=== PATIENT | male | born 1930 | race Caucasian/White ===

== ENCOUNTER 2016-08-10 07:07 | Observation (INO) | payer OTHER ==
--- NOTE | 2016-08-10 07:28 | EDPHY ---
H & P Time Seen by Provider: 08/10/16 07:24 HPI/ROS: CHIEF COMPLAINT: Vomiting HISTORY OF PRESENT ILLNESS: Patient is an 86-year-old male with a history of GERD who presents to the emergency department after having an episode of emesis. Patient was well last evening. He ate normal dinner. At 5:30 a.m. he called to his . He told her he felt nauseated. The and had numerous episodes of emesis. His symptoms subsided and he was able to sit on a stool for little while. When he attempted to lay back down he again had an episode of emesis. He had a total of 4 episodes of nonbloody emesis. He also had a bowel movement that was regular with no diarrhea. Patient denies any abdominal pain currently or during his symptoms. No back pain. No fevers or chills. No chest pain or shortness of breath. No recent trauma. REVIEW OF SYSTEMS: My complete review of systems is negative except as mentioned in the HPI. Additionally the patient has decreased hearing. Past Medical/Surgical History: Includes GERD, BPH, neuropathy, degenerative disc disease, osteoarthritis, cirrhotic arthritis, migraines, basal cell carcinoma, dyslipidemia, migraines Past surgical history: Bilateral cataract removal, spinal fusion, vasectomy, wrist surgery Smoking Status: Former smoker Physical Exam: 36.4, 153/103, 83, 18, 95% on room air GENERAL: Well-appearing, in no acute distress, alert. HEENT: Eyes normal to inspection, normal pharynx, no signs of dehydration. NECK: No thyromegaly, no lymphadenopathy, supple. RESPIRATORY: Clear to auscultation bilaterally, no rales, rhonchi or wheezing. CVS: Regular rate and rhythm, no rubs, murmurs, or gallops. ABDOMEN: Soft, nontender, nondistended, no organomegaly. Benign BACK: Normal to inspection, no CVA tenderness. SKIN: Normal color, no rash, warm, dry. No pallor. EXTREMITIES: No pedal edema, no calf tenderness, no Homans sign or cords, no joint swelling. NEURO/PSYCH: Alert and oriented x3, normal mood and affect, normal motor sensory exam. No obvious cranial nerve deficit. Constitutional: Initial Vital Signs Temperature (C) 36.4 C 08/10/16 07:15 Heart Rate 83 08/10/16 07:15 Respiratory Rate 18 08/10/16 07:15 Blood Pressure 153/103 H 08/10/16 07:15 O2 Sat (%) 95 08/10/16 07:15 O2 Delivery Mode Nasal Cannula O2 (L/minute) 4 Allergies/Adverse Reactions: amoxicillin [Amoxicillin] Allergy (Verified 02/15/15 08:12) clopidogrel bisulfate [From Plavix] Allergy (Verified 02/15/15 08:12) meclofenamate sodium [From Meclomen] Allergy (Verified 02/15/15 08:12) Hives mirabegron [From Myrbetriq] Allergy (Verified 04/08/15 14:46) Quinolones Allergy (Verified 02/15/15 08:12) Home Medications: Medication Instructions Recorded Aspirin [Aspirin 81mg (*)] 81 mg PO DAILY 09/13/13 Finasteride [Proscar 5 MG (*)] 5 mg PO DAILY@18 09/13/13 Multivitamins [Multivitamin (*)] 1 each PO Q2D@1800 09/13/13 Naproxen [Naprosyn] 500 mg PO BIDMEAL 09/13/13 Omeprazole [Prilosec 20 mg] 20 mg PO BIDAC 09/13/13 DORZOLAMIDE HCL [DORZOLAMIDE HCL] 1 drop EACHEYE TID 08/10/16 DULoxetine [Cymbalta] 20 mg PO DAILY 08/10/16 Tafluprost/Pf [Zioptan 0.0015% Eye 1 drop EACHEYE HS 08/10/16 Drops] Tolterodine Tartrate [Tolterodine 4 mg PO DAILY 08/10/16 Tartrate ER] Vit A,C & E/Lutein/Minerals 1 each PO Q2D@1800 08/10/16 [Ocuvite Tablet] Medical Decision Making - Diagnostics EKG Interpretation: EKG at 9:13 a.m. Sinus rhythm at 80. Ventricular bigeminy. Left anterior fascicular block. ED Course/Re-evaluation: In the emergency department I discussed possible etiologies with the patient and his . I answered all their questions. I reviewed the patient's previous H and P from 09/13/2013. Patient states he is feeling better at this time. Patient was given normal saline 500 mL IV. He was given Zofran 4 mg IV. Laboratory studies were ordered. 910: The nurse asked that I evaluate the patient. His pressure has been tracking down. He has received 1 L of normal saline. It is noted that he received Phenergan from EMS. Rechecked the patient. He denies lightheadedness or dizziness. No chest pain or palpitations. An EKG was ordered. 915: The patient has no complaints. He states " I feel fine." no chest pain or shortness of breath. No nausea. No abdominal pain. He denies headache. Patient EKG showed bigeminy. This was changed from the EMS EKG which showed trigeminy. Troponin, BNP, D-dimer, blood cultures, lactic acid and chest x-ray were added to his orders. I informed the nurse that the plan. Pacer pads were placed. Patient was given a fluid bolus for his hypotension 930: The patient has no complaints. His blood pressure is 95/55 with a heart rate of 76. 1005: I reviewed the patient's laboratory studies. His troponin is still pending. His D-dimer is elevated at 0.9. Patient's creatinine was normal. His chemistry was otherwise unremarkable. His lactic acid was 1.1. Patient's white count is normal. He is not anemic. 1020: The patient's blood pressure 114/61 with a heart rate of 83. 1040: Patient's troponin is normal. Discussed all results with the patient. On recheck the patient had no complaints. His blood pressure is 119/64 with a heart rate of 87. I discussed case with the hospitalist service. She will admit for further observation. Differential Diagnosis: My differential includes but is not limited to small-bowel obstruction, perforation, viral illness, pancreatitis, cholecystitis, dehydration, influenza , dissection, aneurysm - Data Points Laboratory Results: Laboratory Results 08/10/16 07:40 08/10/16 07:40 08/10/16 08/10/16 08/10/16 09:38 09:38 07:40 WBC RBC Hgb Hct MCV MCH MCHC RDW Plt Count MPV Neut % (Auto) Lymph % (Auto) [place] % (Auto) Eos % (Auto) Baso % (Auto) Nucleat RBC Rel Count Absolute Neuts (auto) Absolute Lymphs (auto) Absolute Monos (auto) Absolute Eos (auto) Absolute Basos (auto) Absolute Nucleated RBC Immature Gran % Seg Neutrophils % Band Neutrophils % Lymphocytes % Monocytes % Eosinophils % Immature Gran # Absolute Seg Neuts Absolute Band Neuts Absolute Lymphocytes Absolute Monocytes Absolute Eosinophils Platelet Estimate Large Platelets Microcytic Cells Echinocytes D-Dimer 0.95 ug/mLFEU H ug/mLFEU (0.00-0.50) VBG Lactic Acid 1.1 mmol/L mmol/L (0.7-2.1) Sodium Potassium Chloride Carbon Dioxide Anion Gap BUN Creatinine Estimated GFR Glucose Calcium Total Bilirubin Conjugated Bilirubin Unconjugated Bilirubin AST ALT Alkaline Phosphatase Troponin I < 0.012 ng/mL ng/mL (0-0.034) NT-Pro-B Natriuret Pep 543 pg/mL H pg/mL (0-450) Total Protein Albumin Lipase 08/10/16 08/10/16 07:40 07:40 WBC 4.72 10^3/uL 10^3/uL (3.80-9.50) RBC 5.76 10^6/uL 10^6/uL (4.40-6.38) Hgb 16.8 g/dL g/dL (13.7-17.5) Hct 49.0 % % (40.0-51.0) MCV 85.1 fL fL (81.5-99.8) MCH 29.2 pg pg (27.9-34.1) MCHC 34.3 g/dL g/dL (32.4-36.7) RDW 13.5 % % (11.5-15.2) Plt Count 157 10^3/uL 10^3/uL (150-400) MPV 12.4 fL H fL (8.7-11.7) Neut % (Auto) Not Reported Lymph % (Auto) Not Reported [place] % (Auto) Not Reported Eos % (Auto) Not Reported Baso % (Auto) Not Reported Nucleat RBC Rel Count 0.0 % % (0.0-0.2) Absolute Neuts (auto) Not Reported Absolute Lymphs (auto) Not Reported Absolute Monos (auto) Not Reported Absolute Eos (auto) Not Reported Absolute Basos (auto) Not Reported Absolute Nucleated RBC 0.00 10^3/uL 10^3/uL (0-0.01) Immature Gran % Not Reported Seg Neutrophils % 19 % % Band Neutrophils % 66 % % Lymphocytes % 11 % % Monocytes % 1 % % Eosinophils % 3 % % Immature Gran # Not Reported Absolute Seg Neuts 0.90 10^/uL L 10^/uL (1.70-6.50) Absolute Band Neuts 3.12 10^3/uL H 10^3/uL (0.00-0.70) Absolute Lymphocytes 0.52 10^3/uL L 10^3/uL (1.00-3.00) Absolute Monocytes 0.05 10^3/uL L 10^3/uL (0.30-0.80) Absolute Eosinophils 0.14 10^3/uL 10^3/uL (0.03-0.40) Platelet Estimate ADEQUATE (ADEQ) Large Platelets PRESENT H Microcytic Cells 1+ H Echinocytes 1+ H D-Dimer VBG Lactic Acid Sodium 140 mEq/L mEq/L (134-144) Potassium 4.1 mEq/L mEq/L (3.5-5.2) Chloride 102 mEq/L mEq/L (97-110) Carbon Dioxide 25 mEq/l mEq/l (22-31) Anion Gap 13 mEq/L mEq/L (8-16) BUN 24 mg/dL H mg/dL (7-23) Creatinine 0.9 mg/dL mg/dL (0.7-1.3) Estimated GFR > 60 Glucose 99 mg/dL mg/dL (70-100) Calcium 9.5 mg/dL mg/dL (8.5-10.4) Total Bilirubin 1.1 mg/dL mg/dL (0.1-1.4) Conjugated Bilirubin 0.4 mg/dL mg/dL (0.0-0.5) Unconjugated Bilirubin 0.7 mg/dL mg/dL (0.0-1.1) AST 29 IU/L IU/L (17-59) ALT 27 IU/L IU/L (21-72) Alkaline Phosphatase 82 IU/L IU/L (38-126) Troponin I NT-Pro-B Natriuret Pep Total Protein 6.5 g/dL g/dL (6.3-8.2) Albumin 3.8 g/dL g/dL (3.5-5.0) Lipase 89.0 IU/L IU/L (23-300) Medications Given: Discontinued Medications Aspirin (Aspirin) 324 mg PO EDNOW ONE Stop: 08/10/16 09:20 Last Admin: 08/10/16 09:31 Dose: 324 mg Sodium Chloride (Ns) 1,000 mls @ 0 mls/hr IV ONCE ONE PRN Reason: Wide Open Stop: 08/10/16 07:46 Last Admin: 08/10/16 07:46 Dose: 1,000 mls Sodium Chloride (Ns) 1,000 mls @ 0 mls/hr IV ONCE ONE PRN Reason: Wide Open Stop: 08/10/16 09:20 Last Admin: 08/10/16 09:15 Dose: 1,000 mls Ondansetron HCl (Zofran) 4 mg IVP EDNOW ONE Stop: 08/10/16 08:20 Last Admin: 08/10/16 08:26 Dose: 4 mg Departure - Departure Disposition: [facility] Inpatient Acute Clinical Impression: Vomiting Qualifiers: Vomiting type: unspecified Vomiting Intractability: non-intractable Nausea presence: with nausea Qualified Code(s): R11.2 - Nausea with vomiting, unspecified Condition: Good
[2016-08-10] MEDS ORDERED: NS 1,000 ML IV ONE ×2 (07:45→09:19)
[2016-08-10] MEDS ORDERED: ONDANSETRON 4 MG/2 ML VIAL IVP ONE (08:19)
[2016-08-10 08:29] LABS: ADD MORPH? NO; ADD SCAN? YES; ATYPICAL LYMPHOCYTE FLAG 0 (0-99); FRAGMENT RBC FLAG 0 (0-99); HEMOGLOBIN 16.8 g/dL (13.7-17.5); LIPEMIA HEMOLYSIS FLAG 90 (0-99); MEAN CELL HEMOGLOBIN 29.2 pg (27.9-34.1); MEAN CELL HEMOGLOBIN CONCENTR. 34.3 g/dL (32.4-36.7); MEAN CELL VOLUME 85.1 fL (81.5-99.8); MEAN PLATELET VOLUME 12.4 fL (8.7-11.7); PLATELET CLUMPS FLAG 10 (0-99); PLATELET COUNT 157 10^3/uL (150-400); RED BLOOD CELL COUNT 5.76 10^6/uL (4.40-6.38); RED CELL DISTRIBUTION WIDTH 13.5 % (11.5-15.2)
[2016-08-10 08:41] LABS: LEFT SHIFT FLG 110 (0-99)
[2016-08-10 08:45] LABS: ALANINE AMINOTRANSFERASE 27 IU/L (21-72); ALBUMIN 3.8 g/dL (3.5-5.0); ALKALINE PHOSPHATASE 82 IU/L (38-126); ANION GAP 13 mEq/L (8-16); ASPARTATE AMINOTRANSFERASE 29 IU/L (17-59); BILIRUBIN,TOTAL 1.1 mg/dL (0.1-1.4); BILIRUBIN-CONJUGATED 0.4 mg/dL (0.0-0.5); BILIRUBIN-UNCONJUGATED 0.7 mg/dL (0.0-1.1); CALCIUM 9.5 mg/dL (8.5-10.4); CARBON DIOXIDE 25 mEq/l (22-31); CHLORIDE 102 mEq/L (97-110); CREATININE 0.9 mg/dL (0.7-1.3); GLOMERULAR FILTRATION RATE > 60; GLUCOSE 99 mg/dL (70-100); POTASSIUM 4.1 mEq/L (3.5-5.2); SODIUM 140 mEq/L (134-144); TOTAL PROTEIN 6.5 g/dL (6.3-8.2)
[2016-08-10 09:10] LABS: ADD DIFF? YES; SCAN POSITIVE
--- NOTE | 2016-08-10 09:14 | CPEKG ---
Heart Rate: 80 RR Interval: 750 P-R Interval: 184 QRSD Interval: 116 QT Interval: 364 QTC Interval: 420 P Morrill: 69 QRS Morrill: -56 T Wave Morrill: 127 EKG Severity - ABNORMAL ECG - EKG Impression: SINUS RHYTHM EKG Impression: VENTRICULAR BIGEMINY EKG Impression: LEFT ANTERIOR FASCICULAR BLOCK EKG Impression: PROBABLE LATERAL INFARCT, AGE INDETERMINATE EKG Impression: ABNRM R PROG, CONSIDER ASMI OR LEAD PLACEMENT Electronically Signed By: Debi Garcias 10-Aug-2016 15:18:44
[2016-08-10] MEDS ORDERED: ASPIRIN 81 MG CHEWABLE TAB PO ONE (09:19)
[2016-08-10 09:25] LABS: ECHINOCYTES 1+; LARGE PLATELETS PRESENT; MICROCYTES 1+; PLATELET ESTIMATE ADEQUATE (ADEQ)
[2016-08-10 10:17] LABS: TROPONIN I < 0.012 ng/mL (0-0.034)
[2016-08-10 11:50] LABS: COLOR YELLOW; LEUKOCYTE ESTERASE,URINE NEGATIVE (NEGATIVE); NITRITE,URINE NEGATIVE (NEGATIVE)
--- NOTE | 2016-08-10 13:45 | GHP ---
[f rep st] HISTORY AND PHYSICAL DATE OF ADMISSION: 08/10/2016 HISTORY OF PRESENT ILLNESS: The patient is a pleasant 86-year-old gentleman with a history of psori atic arthritis who presents with vomiting. He was feeling well yesterday and then at about 5 o'cloc k this morning, he developed some nausea and vomiting. He had emesis without blood or coffee ground s. He had a bowel movement, but no diarrhea. He had not had fever chills. He has not had shortness of breath. He has no history of VTE. The emergency course was complicated by an episode of hypotension with blood pressures in the 60s. He was pale and ashen. His is at the bedside. At that point in time, his heart rate was in th e 70s, but it was ventricular bigeminy and with a sinus rate that was into the 30s. It sounds as th ough he has had a couple of episodes in the past of bigeminy or at least orthostasis and vasovagal e pisodes. He received some IV fluids with improvement in his symptoms. He did not have chest pain or shortnes s of breath. REVIEW OF SYSTEMS: Complete 10-point review of systems conducted, negative except as noted in the H PI. PAST MEDICAL HISTORY: 1. BPH. 2. Psoriatic arthritis. 3. Reflux. 4. Neuropathy. 5. EGD. 6. Migraines. 7. C2 vertebral body fracture. 8. Difficulty hearing. 9. Cataracts and glaucoma. HOME MEDICATIONS: 1. Aspirin. 2. Dorzolamide. 3. Duloxetine. 4. Finasteride. 5. Multivitamin. 6. Naproxen. 7. Omeprazole. 8. Tafluprost eyedrops. 9. Tolterodine. 10. Ocuvite. ALLERGIES: 1. AMOXICILLIN. 2. CLOPIDOGREL. 3. MECLOFENAMATE. 4. MIRABEGRON. 5. QUINOLONES. SOCIAL HISTORY: Retired light truck driver. Occasional alcohol, no tobacco. FAMILY HISTORY: Parents . PHYSICAL EXAMINATION: VITAL SIGNS: Temperature 37.8, blood pressure 112/66, pulse 87, breathing 16 times a minute, 98% on 2 L. His carmelita blood pressure was 58/37. He was not tachycardic on present ation. GENERAL: No acute distress, pale. HEENT: Sclerae anicteric. Oropharynx clear. Mucous mem branes moist. NECK: Supple without lymphadenopathy or JVD. LUNGS: Clear to auscultation bilatera lly. HEART: S1, S2 without murmurs. ABDOMEN: Soft, nontender, nondistended. LOWER EXTREMITIES: Without edema. Calves nontender. SKIN: Without rash. NEUROLOGIC EXAM: Nonfocal. LABS: White count 4.7, hematocrit 49, platelets are 157,000 D-dimer is elevated at 0.95, venous lac cortes is 1.1. Sodium 140, potassium 4.1, chloride 102, bicarb 25, BUN 24, which is greater than his baseline, creatinine 0.9. LFTs normal. Troponin less than 0.012. Lipase is 89. He has negative U A. Chest x-ray, interpreted by me, shows no acute cardiopulmonary disease. EKG interpreted by me shows sinus bigeminy at 80, but his sinus rate is into the 30s. There are no ST-T wave changes. There is left axis deviation. I have discussed the case with Debi Garcias MD. ASSESSMENT AND PLAN: This is an 86-year-old gentleman who presents with likely viral gastroenteriti s with nausea and vomiting with subsequent likely vasovagal. 1. Vasovagal. The patient was trying to suppress vomiting at the time this happened. He is certai nly at risk of vagal in that regard, responded to fluids, he was not tachycardic and his sinus rate was bradycardic. To that end, we will monitor on telemetry and check an echocardiogram and cycle tr oponins. I discussed doing a PE workup. I think that can be foregone at this point in time. 2. Gastroenteritis. Symptomatic relief, IV fluids. He will have a clear liquid diet. 3. Glaucoma. Continue with eyedrops. 4. Reflux. Will continue his PPI. 5. Psoriatic arthritis. Continue his naproxen. If the patient has concerns for upper gastrointest inal bleeding, certainly, we will discontinue this. 6. Prophylaxis: Pharmacologic prophylaxis is indicated if in the hospital longer than 24 hours. F or now, we will just monitor. DISPOSITION: Observation status. /[id number]/MODL
--- NOTE | 2016-08-10 16:26 | ECHO ---
[id number] + + [address] : : [place] [address] : : [phone] + + Adult Echocardiographic Report + -----+ :Name: LAKEISHA VAUGHAN HStudy Date: 08/10/2016 01:40 PM : : Hospital Admission Number: [id number] Location : 144: :: 1930 Gender: Male Height: 67 in : :Age: 86 yrs Race: WH Weight: 160 lb : :Reason For Study: Eval LV Fx : : BSA: 1.8 meters2 : :History: Bigeminy : + -----+ MMode/2D Measurements \T\ Calculations IVSd: 0.76 cm LVIDd: 3.0 cm FS: 35.2 % Ao root diam: 2.5 cm LVPWd: 0.87 cm LVIDs: 2.0 cm EDV(Teich): 35.3 ml ACS: 1.5 cm ESV(Teich): 11.9 ml EF(Teich): 66.2 % Normal Measurement Values: + + :LVIDd (3.5-5.7cm) IVSd (0.6-1.1cm) LVPWd (0.6-1.1cm) Aortic Root (2.0-3.7cm)Left Atrium (1.5-4.0cm): :LV Vol(d) (76-115ml) LV Vol(s) (29-48ml) Ejec Fraction (50-65%)PV Lonny (0.6- 1.2m/s) TV Lonny (0.4-1.0m/s) : :MV E Lonny (0.8-1.0m/s)MV A Lonny (0.3-1.0m/s)LVOT Lonny (0.7-1.2m/s) Asc Ao Lonny ( 0.9-1.8m/s) : + + Doppler Measurements \T\ Calculations MV E max lonny: Ao V2 max: AI max lonny: LV V1 max: 54.8 cm/sec 144.0 cm/sec 247.0 cm/sec 76.5 cm/sec MV A max lonny: Ao max PG: AI max P.4 mmHg LV V1 max P.2 cm/sec 8.3 mmHg AI dec slope: 2.3 mmHg MV E/A: 0.56 108.0 cm/sec2 AI P1/2t: 669.9 msec PA V2 max: TR max lonny: 80.1 cm/sec 238.0 cm/sec PA max PG: TR max P.6 mmHg 22.7 mmHg RAP systole: 5.0 mmHg RVSP(TR): 27.7 mmHg Left Ventricle The left ventricle is normal in size. There is normal left ventricular wall thickness. The left ventricular ejection fraction is normal. There is Doppler evidence for diastolic dysfunction. Ejection Fraction = 66%. The left ventricular wall motion is normal. Right Ventricle The right ventricle is normal in size and function. Atria The left atrial size is normal. Right atrial size is normal. Mitral Valve The mitral valve is normal in structure and function. There is no evidence of mitral valve prolapse. There is no mitral valve stenosis. There is trace mitral regurgitation. Tricuspid Valve There is trace tricuspid regurgitation. Right ventricular systolic pressure is normal. Aortic Valve The aortic valve is not well visualized. There is no aortic stenosis. There is no aortic insufficiency. Pulmonic Valve The pulmonic valve is not well visualized. There is no pulmonic valvular regurgitation. Great Vessels The aortic root is normal size. Pericardium/Pleural There is no pericardial effusion. Conclusion A complete two-dimensional transthoracic echocardiogram was performed (2D, M-mode, Doppler and color flow Doppler). 1. The left ventricle is normal in size and function. The Ejection Fraction = 66%. 2. The mitral valve is normal in structure and function. There is trace mitral regurgitation. 3. The aortic valve is not well visualized. There is no aortic stenosis. There is no aortic insufficiency. 4. Right ventricular systolic pressure is normal. 5. No old studies for comparison. Final Reading Physician: Emiliano Huynh MD electronically signed on 08/10/2016 04:25 PM Ordering Physician: Jason Roth Performed By: Dennis Caba, CS
[2016-08-10] MEDS: DORZOLAMIDE 2% OPTH DROPS EACHEYE SCH ×2 (17:13→20:48)
[2016-08-10] MEDS ORDERED: MULTIVITAMINS 1 EACH TAB PO SCH (18:00)
[2016-08-10] MEDS ORDERED: FINASTERIDE 5 MG TAB PO SCH (18:00)
[2016-08-10] MEDS ORDERED: PRESERVISION AREDS2 FORMULA EYE VIT 1 EACH PO SCH (18:00)
[2016-08-10] MEDS: NAPROXEN SODIUM 220 MG TAB PO SCH ×2 (18:50→18:52)
[2016-08-10] MEDS: PANTOPRAZOLE SODIUM 40 MG TAB PO SCH (18:56)
[2016-08-10] MEDS: TAFLUPROST EACHEYE SCH ×2 (20:45→20:47)
[2016-08-11] MEDS: NS 1,000 ML IV SCH ×2 (04:03→04:47)
[2016-08-11] MEDS ORDERED: ACETAMINOPHEN 500 MG TAB PO PRN (04:30)
[2016-08-11 06:17] LABS: ANION GAP 9 mEq/L (8-16); CALCIUM 8.2 mg/dL (8.5-10.4); CARBON DIOXIDE 23 mEq/l (22-31); CHLORIDE 107 mEq/L (97-110); GLOMERULAR FILTRATION RATE > 60; GLUCOSE 100 mg/dL (70-100); SODIUM 139 mEq/L (134-144)
[2016-08-11 06:22] LABS: TROPONIN I 0.133 ng/mL (0-0.034)
[2016-08-11] MEDS ORDERED: INDOMETHACIN 25 MG CAP PO SCH (08:00)
[2016-08-11] MEDS ORDERED: DULoxetine 20 MG CAP PO SCH (09:00)
[2016-08-11] MEDS ORDERED: ASPIRIN 81 MG CHEWABLE TAB PO SCH (09:00)
[2016-08-11] MEDS: PANTOPRAZOLE SODIUM 40 MG TAB PO SCH (11:24)
[2016-08-11] MEDS: NAPROXEN SODIUM 220 MG TAB PO SCH (11:25)
[2016-08-11 11:55] VITALS: RESP 16
[2016-08-11] MEDS: TOLTERODINE TARTRATE 2 MG EXT REL CAP PO SCH ×2 (13:43→13:46)
[2016-08-11] MEDS: DORZOLAMIDE 2% OPTH DROPS EACHEYE SCH (13:46)
--- NOTE | 2016-08-11 15:26 | HOSPPROG ---
Hospitalist Progress Note Assessment/Plan: 86 yo M w likely viral gastroenteritis and now + trop hypotension: likely vagal CV: echo w no WMA trop .133 w no CP or ekg changes on asa repeat trop 1. home w outpt stress if lower 2. inpat eval if trending up gastroenteritis: improved eating no diarrhea glaucoma: continue eye drops dispo: pending Subjective: no events tele (interp by me). case d/w silas haro, cardiology PA Objective: Vital Signs Temp Pulse Resp BP Pulse Ox 36.9 C 66 16 96/48 L 96 08/11/16 11:49 08/11/16 11:49 08/11/16 11:49 08/11/16 11:49 08/11/16 11:49 Laboratory Results 08/11/16 05:13 08/10/16 08/11/16 08/12/16 05:59 05:59 05:59 Intake Total 2000 Output Total 200 Balance 1800 - Physical Exam Constitutional: no apparent distress, appears nourished Eyes: PERRL, anicteric sclera Ears, Nose, Mouth, Throat: moist mucous membranes, hearing normal Cardiovascular: regular rate and rhythym, no murmur, rub, or gallop Respiratory: no respiratory distress, no rales or rhonchi Gastrointestinal: normoactive bowel sounds, soft, non-tender abdomen Genitourinary: No mead in urethra Skin: warm, normal color Musculoskeletal: full muscle strength, no muscle tenderness Neurologic: AAOx3 ICD10 Worksheet Patient Problems: Problems Problem Status Onset Vomiting Acute CAP (community acquired pneumonia) Acute
[2016-08-11 16:08] VITALS: BP 100/55; PULSE 63; TEMP 97.3; O2SAT 95
--- NOTE | 2016-08-11 17:14 | GDS ---
[f rep st] DISCHARGE SUMMARY DISCHARGE DIAGNOSES: 1. Likely viral gastroenteritis. 2. Transient episode of hypertension, suspect vasovagal. 3. Macular degeneration. 4. Positive troponin, felt secondary to myocardial strain from hypertension. HOSPITAL COURSE: Please see admission history and physical by Dr. Jason Roth. The patient pres ented with nausea and vomiting, low-grade temperatures consistent with viral gastroenteritis. He di d not have diarrhea, did not have peritoneal signs. He had a vagal episode while trying to suppress vomiting in the emergency department. He became hypotensive, that responded to fluids. An initial troponin was less than 0.012, and it peaked at 0.1333. He had nonischemic EKG changes and echo wit hout focal wall motion abnormalities. The patient is anxious for discharge today, he does take an aspirin at home. He has been contacted by [facility] regarding setting up outpatient stress test. He has seen Dr. Lnag Alvarado in the p ast. /[id number]/MODL
== END 2016-08-11 16:31 | disposition home or self-care (01) ==
LOC: EDUNIT# → F1N 12:51
PROVIDERS: ADMIT Internal Medicine; ATTEND Internal Medicine
DX: A08.4 Viral intestinal infection, unspecified (principal); I95.9 Hypotension, unspecified; K21.9 Gastro-esophageal reflux disease without esophagitis; H40.9 Unspecified glaucoma; Z98.1 Arthrodesis status; Z87.891 Personal history of nicotine dependence
CPT/HCPCS: 71010; 93005; 93306; 96374; 99285; G0378; J2405

== ENCOUNTER 2017-03-07 00:14 | Emergency (ER) | payer OTHER ==
[2017-03-07 00:22] VITALS: RESP 18
--- NOTE | 2017-03-07 00:56 | EDPHY ---
H & P Stated Complaint: dental bleeding HPI/ROS: HPI CHIEF COMPLAINT: Hypertension, dental bleeding HISTORY OF PRESENT ILLNESS: This patient very pleasant 86-year-old male, he recently had dental surgery by Dr. Vang. Dr. vang here in the emergency room evaluating the patient. He started bleeding this evening. However of note when he arrived to the emergency room is blood pressure is very high in the 200s. He typically does not have hypertension. He denies any chest pain or shortness of breath. Denies pain anywhere. Denies headache. Does not feel bad. He is on aspirin. Denies any other blood thinners. Upon my evaluation is current blood pressure is 176/97. The hypertension may be causing his oral bleeding. Past Medical History: Macular degeneration, cataracts, migraine headaches, psoriatic arthritis, C2 fracture BPH Past Surgical History: Oral surgery. Social History: Denies daily use drugs alcohol tobacco products. Family History: Noncontributory ROS REVIEW OF SYSTEMS: A comprehensive 10 point review of systems is otherwise negative aside from elements mentioned in the history of present illness. Exam Constitutional appears well nontoxic, triage nursing summary reviewed, vital signs reviewed, awake/alert. Noted to be hypertensive Eyes normal conjunctivae and sclera, EOMI, PERRLA. HENT oropharynx has bleeding present, Dr. Vang a bedside holding pressure, moist mucus membranes, no epistaxis, neck supple/ no meningismus, no raccoon eyes. Respiratory clear to auscultation bilaterally, normal breath sounds, no respiratory distress, no wheezing. Cardiovascular rate normal, regular rhythm, no murmur, no edema, distal pulses normal. Gastrointestinal soft, non-tender, no rebound, no guarding, normal bowel sounds, no distension, no pulsatile mass. Genitourinary no CVA tenderness. Musculoskeletal no midline vertebral tenderness, full range of motion, no calf swelling, no tenderness of extremities, no meningismus, good pulses, neurovascularly intact. Skin pink, warm, & dry, no rash, skin atraumatic. Neurologic awake, alert and oriented x 3, AAOx3, moves all 4 extremities equally, motor intact, sensory intact, CN II-XII intact, normal cerebellar, normal vision, normal speech. Psychiatric normal mood/affect. Heme/Lymph/Immune no lymphadenopathy. Differential Diagnosis: Includes but is not limited to in a particular order, hypertensive urgency, hypertensive emergency, hypertension causing or bleeding, or bleeding from recent surgery. Medical Decision Making: Plan for this patient IV establishment with blood draw , check H&H, troponin EKG. 10 mg IV hydralazine. This may help lower his blood pressure to see if this improves his oral bleeding. Re-evaluation: 0233AM: Blood pressure currently 130s over 80s. Patient requesting be discharged home. He denies any chest pain or shortness of breath. His blood work is reassuring with a normal creatinine. Troponin negative. His EKG has been reviewed is not show acute ischemia. His EKG is unchanged from previous EKGs. As for his oropharynx heel bleeding Dr. Vang was able to get this to stop. It was noted that the patient was initially very hypertensive when he got here 200 systolic. This may be contributing to his or bleeding status post surgery. The bleeding is currently subsided. They would like all home. Given that his blood pressure has improved his EKG is nonischemic troponin is negative kidney function normal and blood pressure is greatly improved on its own he refused IV hydralazine I will allow her to go home. He understands keep a close eye on his blood pressure over the next few days taking it twice a day. Follow up with his primary care doctor as well. He understands follow up Dr. Vang tomorrow. Additionally understands return precautions and if he develops chest pain, shortness of breath high blood pressure he should return to the ER. He understands. Additionally return if oral bleeding. Source: Patient - Personal History Tetanus Vaccine Date: with in 5 yrs - Medical/Surgical History Hx Asthma: No Hx Chronic Respiratory Disease: No Hx Diabetes: No Hx Cardiac Disease: No Hx Renal Disease: No Hx Cirrhosis: No Hx Alcoholism: No Hx HIV/AIDS: No Hx Splenectomy or Spleen Trauma: No Other PMH: PMH- psoriatic arthritis, gerd/ulcer, neuropathy, ortho, c-2 fracture , osteoperosis, BPH, keratocunjuctivitis, dysplipedima, PAC's, basal cell CA, migraines, hearing loss. PSH- vasectomy, R wrist fusion, cataract surgery, glaucoma repair - Social History Smoking Status: Former smoker Constitutional: Initial Vital Signs Heart Rate 73 03/07/17 00:18 Respiratory Rate 18 03/07/17 00:18 Blood Pressure 204/101 H 03/07/17 00:18 O2 Sat (%) 98 03/07/17 00:18 O2 Delivery Mode Room Air Allergies/Adverse Reactions: amoxicillin [Amoxicillin] Allergy (Verified 03/07/17 00:21) clopidogrel bisulfate [From Plavix] Allergy (Verified 03/07/17 00:21) meclofenamate sodium [From Meclomen] Allergy (Verified 03/07/17 00:21) Hives mirabegron [From Myrbetriq] Allergy (Verified 03/07/17 00:21) Quinolones Allergy (Verified 03/07/17 00:21) Home Medications: Medication Instructions Recorded Aspirin [Aspirin 81mg (*)] 81 mg PO DAILY 09/13/13 Finasteride [Proscar 5 MG (*)] 5 mg PO DAILY@18 09/13/13 Multivitamins [Multivitamin (*)] 1 each PO Q2D@1800 09/13/13 Naproxen [Naprosyn] 500 mg PO BIDMEAL 09/13/13 Omeprazole [Prilosec 20 mg] 20 mg PO BIDAC 09/13/13 DORZOLAMIDE HCL 1 drop EACHEYE TID 08/10/16 DULoxetine [Cymbalta] 20 mg PO DAILY 08/10/16 Tafluprost/Pf [Zioptan 0.0015% Eye 1 drop EACHEYE HS 08/10/16 Drops] Tolterodine Tartrate [Tolterodine 4 mg PO DAILY 08/10/16 Tartrate ER] Vits A,C,E/Lutein/Minerals 1 each PO Q2D@1800 08/10/16 [Ocuvite with Lutein Tablet] Medical Decision Making - Data Points Laboratory Results: Laboratory Results 03/07/17 01:08 03/07/17 01:08 03/07/17 03/07/17 01:08 01:08 WBC 7.03 10^3/uL 10^3/uL (3.80-9.50) RBC 4.95 10^6/uL 10^6/uL (4.40-6.38) Hgb 14.7 g/dL g/dL (13.7-17.5) Hct 42.0 % % (40.0-51.0) MCV 84.8 fL fL (81.5-99.8) MCH 29.7 pg pg (27.9-34.1) MCHC 35.0 g/dL g/dL (32.4-36.7) RDW 14.1 % % (11.5-15.2) Plt Count 165 10^3/uL 10^3/uL (150-400) MPV 11.2 fL fL (8.7-11.7) Neut % (Auto) 64.4 % % (39.3-74.2) Lymph % (Auto) 24.5 % % (15.0-45.0) [place] % (Auto) 7.3 % % (4.5-13.0) Eos % (Auto) 3.4 % % (0.6-7.6) Baso % (Auto) 0.3 % % (0.3-1.7) Nucleat RBC Rel Count 0.0 % % (0.0-0.2) Absolute Neuts (auto) 4.53 10^3/uL 10^3/uL (1.70-6.50) Absolute Lymphs (auto) 1.72 10^3/uL 10^3/uL (1.00-3.00) Absolute Monos (auto) 0.51 10^3/uL 10^3/uL (0.30-0.80) Absolute Eos (auto) 0.24 10^3/uL 10^3/uL (0.03-0.40) Absolute Basos (auto) 0.02 10^3/uL 10^3/uL (0.02-0.10) Absolute Nucleated RBC 0.00 10^3/uL 10^3/uL (0-0.01) Immature Gran % 0.1 % % (0.0-1.1) Immature Gran # 0.01 10^3/uL 10^3/uL (0.00-0.10) Sodium 137 mEq/L mEq/L (134-144) Potassium 4.3 mEq/L mEq/L (3.5-5.2) Chloride 101 mEq/L mEq/L (97-110) Carbon Dioxide 27 mEq/l mEq/l (22-31) Anion Gap 9 mEq/L mEq/L (8-16) BUN 25 mg/dL H mg/dL (7-23) Creatinine 1.0 mg/dL mg/dL (0.7-1.3) Estimated GFR > 60 Glucose 87 mg/dL mg/dL (70-100) Calcium 9.4 mg/dL mg/dL (8.5-10.4) Troponin I < 0.012 ng/mL ng/mL (0.000-0.034) Medications Given: Discontinued Medications Hydralazine HCl (Apresoline) 10 mg IVP EDNOW ONE Stop: 03/07/17 01:03 Last Admin: 03/07/17 01:35 Dose: Not Given Departure - Departure Disposition: Home, Routine, Self-Care Clinical Impression: Oral bleeding Hypertension Qualifiers: Hypertension type: unspecified Qualified Code(s): I10 - Essential (primary) hypertension Condition: Good Instructions: Hypertension (ED) Additional Instructions: 1. Return immediately to the emergency room if develops significant or bleeding. 2. Please see Dr. Vang tomorrow. 3. I do recommend that you keep a blood pressure log twice a day. Monitor blood pressure closely. If your feeling that her getting very high levels please seek medical attention. Return to the emergency room. Additionally return emergency room if he develops shortness of breath or chest pain. Or very high readings of blood pressure. Referrals: Patient,NotPresent [Unknown] - As per Instructions
[2017-03-07] MEDS ORDERED: SILVER NITRATE APPLICATOR 1 APPL TP ONE (00:58)
[2017-03-07] MEDS ORDERED: hydrALAZINE 20 MG/ML VIAL IVP ONE (01:02)
[2017-03-07 01:20] LABS: % IMMATURE GRANULYOCYTES 0.1 % (0.0-1.1); ABSOLUTE IMMATURE GRANULOCYTES 0.01 10^3/uL (0.00-0.10); ADD DIFF? NO; ADD MORPH? NO; ADD SCAN? NO; ATYPICAL LYMPHOCYTE FLAG 10 (0-99); FRAGMENT RBC FLAG 0 (0-99); HEMOGLOBIN 14.7 g/dL (13.7-17.5); LEFT SHIFT FLG 0 (0-99); LIPEMIA HEMOLYSIS FLAG 90 (0-99); MEAN CELL HEMOGLOBIN 29.7 pg (27.9-34.1); MEAN CELL VOLUME 84.8 fL (81.5-99.8); MEAN PLATELET VOLUME 11.2 fL (8.7-11.7); PLATELET CLUMPS FLAG 10 (0-99); PLATELET COUNT 165 10^3/uL (150-400); RED BLOOD CELL COUNT 4.95 10^6/uL (4.40-6.38); RED CELL DISTRIBUTION WIDTH 14.1 % (11.5-15.2)
[2017-03-07 01:31] LABS: ANION GAP 9 mEq/L (8-16); CALCIUM 9.4 mg/dL (8.5-10.4); CARBON DIOXIDE 27 mEq/l (22-31); CHLORIDE 101 mEq/L (97-110); GLOMERULAR FILTRATION RATE > 60; GLUCOSE 87 mg/dL (70-100); POTASSIUM 4.3 mEq/L (3.5-5.2); SODIUM 137 mEq/L (134-144)
[2017-03-07 01:32] VITALS: O2SAT 94
[2017-03-07 01:44] LABS: TROPONIN I < 0.012 ng/mL (0.000-0.034)
--- NOTE | 2017-03-07 02:17 | CPEKG ---
Heart Rate: 64 RR Interval: 938 P-R Interval: 184 QRSD Interval: 116 QT Interval: 420 QTC Interval: 434 P [place]: 37 QRS [place]: -39 T Wave [place]: 78 EKG Severity - ABNORMAL ECG - EKG Impression: SINUS RHYTHM EKG Impression: VENTRICULAR PREMATURE COMPLEX EKG Impression: NONSPECIFIC IVCD WITH LAD EKG Impression: LEFT VENTRICULAR HYPERTROPHY EKG Impression: ANTERIOR Q WAVES, POSSIBLY DUE TO LVH Electronically Signed By: Kemar Connelly 08-Mar-2017 07:19:49
[2017-03-07 02:28] VITALS: BP 138/84; PULSE 56
--- NOTE | 2017-03-07 21:48 | GCON ---
[f rep st] ORAL & MAXILLOFACIAL SURGERY CONSULTATION CHIEF COMPLAINT: Bleeding. HISTORY OF PRESENT ILLNESS: 86-year-old male who had an oral surgery procedure around 12:30 pm consisting of a dental endoosseous implant #12 and a crown lengthening #13. At the time of discharge from the office, hemostasis was obtained with gauze pressure. A post-operative phone call placed to the patient at 7 pm revealed that his bleeding had stopped, his pain was controlled , and he was tolerating PO intake without difficulty. Dr. Cortez received a call from the patient's at 10 pm concerned with spontaneous bleeding from the surgical area. She endorsed that the patient went to brush his teeth and developed continuous bleeding despite gauze pressure and tea bag application. It was recommended that the patient go to the ED for evaluation. Upon arrival with his , the patient was noted to be asymptomatically hypertensive. He appeared calm and lucid, and endorsed bleeding from the area but denied oral pain, facial pain, dysphagia, dysphonia, chest pain, visual changes, shortness of breath, or other systemic symptoms. The patient was evaluated by the ED for his hypertension. PAST MEDICAL HISTORY: Glaucoma, peripheral neuropathy, nocturnal seizures, optic neuropathy, osteoporosis, hearing impairment, migraine headaches, psoriatic arthritis, and overactive bladder, BCC. MEDICATIONS: Duloxetine, naproxen, ASA, MV, zioptan, miralax, tolterodine, dorzolomide ALLERGIES: Amoxicillin, quinolones, plavix, metoclopramide, PAST SURGICAL HISTORY: reservations sales agent, ORIF of right tibia fracture, fusion L wrist, halo for C2 fracture, Moh's procedure. FAMILY HISTORY: Denies. SOCIAL HISTORY: Denies REVIEW OF SYSTEMS: A comprehensive review of system was otherwise negative aside from that noted in the HPI. PHYSICAL EXAMINATION: VITAL SIGNS: BP was 204/101, heart rate 73, respiratory rate 18, O2 saturation 98% on room air. HEENT: Patient is normocephalic, very minimal edema of the left nasolabial fold region consistent with postsurgical course. Cranial nerves 2-12 were grossly intact. MATT is 38 mm. Partial edentulism. Silk sutures intact to the numbers 12 and 13 dental region, no dehiscence or visiblity of dental implant #12, bleeding from distal aspect of # 13 adjacent to gold crown of #14, minimally visible to be pulsatile, source appears palatal. Gingiva and mucosa pink, no vestibular edema, no palatal edema , no appearance of vascular congestion. IMAGING: None recommended. ASSESSMENT AND PLAN: Arterial bleed ~10 hours post dental procedure from branch of left greater palatine (?). Marcaine 0.5% with 1:100,000 epinephrine was locally infiltrated in the maxillary left palate as well as the maxillary MSA and PSA nerves. Silk suture 4-0 x 1 placed in horizontal mattress around # 13, along with gauze and manual pressure on left palate resulted in hemostasis and cessation of bleeding. The patient will follow up with Dr. Cortez in her office tomorrow morning. The patient to remain in ED for management and resolution of his hypertension. /[id number]/MODL MTDD
== END 2017-03-07 02:46 | disposition home or self-care (01) ==
LOC: EDUNIT#
DX: I10 Essential (primary) hypertension (principal); K06.8 Other specified disorders of gingiva and edentulous alveolar ridge; Z79.82 Long term (current) use of aspirin; Z87.891 Personal history of nicotine dependence
CPT/HCPCS: J0360

== ENCOUNTER → 2017-04-24 | Outpatient (CLI) | payer OTHER | LOC: BMCIMAGING 12:32 | PROVIDERS: ATTEND Internal Medicine Rheumatology | DX: M25.841 Other specified joint disorders, right hand (principal); L40.50 Arthropathic psoriasis, unspecified ==

== ENCOUNTER → 2017-04-27 | Outpatient (CLI) | payer OTHER | LOC: FCPNEURO 21:00 | PROVIDERS: ATTEND Internal Medicine Sleep Medicine | DX: G47.33 Obstructive sleep apnea (adult) (pediatric) (principal) ==

== ENCOUNTER 2017-06-14 13:26 | Emergency (ER) | payer OTHER ==
--- NOTE | 2017-06-14 13:52 | CPEKG ---
Heart Rate: 58 RR Interval: 1034 P-R Interval: 188 QRSD Interval: 122 QT Interval: 456 QTC Interval: 448 P [place]: 81 QRS [place]: -25 T Wave [place]: 92 EKG Severity - ABNORMAL ECG - EKG Impression: SINUS RHYTHM EKG Impression: NONSPECIFIC INTRAVENTRICULAR CONDUCTION DELAY Electronically Signed By: Mario Stewart 14-Jun-2017 14:08:54
--- NOTE | 2017-06-14 14:04 | EDPHY ---
H & P Time Seen by Provider: 06/14/17 13:28 HPI/ROS: Chief complaint. Near syncope HPI. 87-year-old male here by EMS after nearly passing out. He was sitting in a coffee shop with his and friends and sudden became very pale. He was staring straight ahead though responded to his 's voice. He did not pass out. He has had similar symptoms previously with dehydration, postural hypotension, beta-blockers. EMS noted that his pulse seemed slow. Patient feels well and has no complaints. He did fall and strike his head 9 days ago but did not lose consciousness. He is not on blood thinners other than 81 mg aspirin daily. Patient has no complaints. No chest discomfort, shortness of breath, abdominal pain. ROS Constitutional. Near syncope Eyes. no problems with vision ENT. no sore throat, no nasal drainage Cardiovascular. no chest pain Respiratory. no shortness of breath, no cough Abdominal. no abdominal pain, no nausea/vomiting, no diarrhea . no problems urinating MS. no calf pain/swelling, no neck/back pain, no joint pain Skin. no rash Lymph. no swollen glands Neuro. no headache, no dizziness, no difficulty walking or with speech Past Medical/Surgical History: GERD, BPH, neuropathy, psoriatic arthritis on weekly methotrexate, DJD, dyslipidemia, migraines, C2 vertebral body fracture, possible Parkinson's disease, recent diagnosis sleep apnea now on CPAP Social History: , nonsmoker, no alcohol Smoking Status: Former smoker Physical Exam: General Appearance: Alert well-developed male stable vital signs no distress vitals are stable Eyes: Pupils equal and round no pallor or injection. ENT, Mouth: Mucous membranes are moist. No evidence of head trauma Respiratory: There are no retractions, lungs are clear to auscultation. Cardiovascular: Regular rate and rhythm. Gastrointestinal: Abdomen is soft and nontender, no masses, bowel sounds normal. Neurological: Awake and alert, sensory and motor exams grossly normal. Skin: Warm and dry, no rashes. Musculoskeletal: Neck is supple nontender. Extremities symmetrical, full range of motion. Psychiatric: Patient is oriented X 3, there is no agitation. Constitutional: Initial Vital Signs Temperature (C) 36.6 C 06/14/17 13:54 Heart Rate 59 L 06/14/17 13:54 Respiratory Rate 16 06/14/17 13:54 Blood Pressure 141/76 H 06/14/17 13:54 O2 Sat (%) 93 06/14/17 13:54 O2 Delivery Mode Room Air Allergies/Adverse Reactions: amoxicillin [Amoxicillin] Allergy (Verified 03/07/17 00:21) clopidogrel bisulfate [From Plavix] Allergy (Verified 03/07/17 00:21) meclofenamate sodium [From Meclomen] Allergy (Verified 03/07/17 00:21) Hives mirabegron [From Myrbetriq] Allergy (Verified 03/07/17 00:21) Quinolones Allergy (Verified 03/07/17 00:21) Home Medications: Medication Instructions Recorded Aspirin [Aspirin 81mg (*)] 81 mg PO DAILY 09/13/13 Finasteride [Proscar 5 MG (*)] 5 mg PO DAILY@18 09/13/13 Multivitamins [Multivitamin (*)] 1 each PO Q2D@1800 09/13/13 Naproxen [Naprosyn] 500 mg PO BIDMEAL 09/13/13 Omeprazole [Prilosec 20 mg] 20 mg PO BIDAC 09/13/13 DORZOLAMIDE HCL 1 drop EACHEYE TID 08/10/16 DULoxetine [Cymbalta] 20 mg PO DAILY 08/10/16 Tafluprost/Pf [Zioptan 0.0015% Eye 1 drop EACHEYE HS 08/10/16 Drops] Tolterodine Tartrate [Tolterodine 4 mg PO DAILY 08/10/16 Tartrate ER] Vits A,C,E/Lutein/Minerals 1 each PO Q2D@1800 08/10/16 [Ocuvite with Lutein Tablet] Medical Decision Making - Diagnostics EKG Interpretation: EKG interpreted by me shows normal sinus rhythm normal interval and axis. QRS shows mild nonspecific interventricular conduction delay. There is no arrhythmia. There is no significant ST elevation or depression. The rate is 58 Procedures: IV normal saline with 1 L given. Monitor ED Course/Re-evaluation: Re-evaluation at 3:30 p.m.. The patient has no complaints and feels back to normal. The patient, his , and I discussed EKG and laboratory evaluation. We discussed treatment plan. Patient is offered admission but does not wish to be admitted. Risks and benefits of this are discussed. They have and a upcoming appointment with their regular physician Dr. Denis. The patient and for encouraged to call Dr. Denis tomorrow for any continuing symptoms and encouraged to return sooner for another near passing out episode. They expressed understanding and agreement Differential Diagnosis: Patient has a history of postural hypotension. He may have had transient hypotension. He may have had hypoglycemia. I do not find any evidence of arrhythmia or acute coronary syndrome. No evidence for CVA. Patient is stable here. - Data Points Laboratory Results: Laboratory Results 06/14/17 13:20 06/14/17 13:20 06/14/17 06/14/17 13:20 13:20 WBC 8.31 10^3/uL 10^3/uL (3.80-9.50) RBC 5.33 10^6/uL 10^6/uL (4.40-6.38) Hgb 14.8 g/dL g/dL (13.7-17.5) Hct 44.0 % % (40.0-51.0) MCV 82.6 fL fL (81.5-99.8) MCH 27.8 pg L pg (27.9-34.1) MCHC 33.6 g/dL g/dL (32.4-36.7) RDW 14.9 % % (11.5-15.2) Plt Count 239 10^3/uL 10^3/uL (150-400) MPV 11.4 fL fL (8.7-11.7) Neut % (Auto) 64.5 % % (39.3-74.2) Lymph % (Auto) 22.4 % % (15.0-45.0) [place] % (Auto) 9.0 % % (4.5-13.0) Eos % (Auto) 3.2 % % (0.6-7.6) Baso % (Auto) 0.7 % % (0.3-1.7) Nucleat RBC Rel Count 0.0 % % (0.0-0.2) Absolute Neuts (auto) 5.35 10^3/uL 10^3/uL (1.70-6.50) Absolute Lymphs (auto) 1.86 10^3/uL 10^3/uL (1.00-3.00) Absolute Monos (auto) 0.75 10^3/uL 10^3/uL (0.30-0.80) Absolute Eos (auto) 0.27 10^3/uL 10^3/uL (0.03-0.40) Absolute Basos (auto) 0.06 10^3/uL 10^3/uL (0.02-0.10) Absolute Nucleated RBC 0.00 10^3/uL 10^3/uL (0-0.01) Immature Gran % 0.2 % % (0.0-1.1) Immature Gran # 0.02 10^3/uL 10^3/uL (0.00-0.10) Sodium 140 mEq/L mEq/L (135-145) Potassium 4.5 mEq/L mEq/L (3.5-5.2) Chloride 102 mEq/L mEq/L (97-110) Carbon Dioxide 23 mEq/l mEq/l (22-31) Anion Gap 15 mEq/L mEq/L (8-16) BUN 20 mg/dL mg/dL (7-23) Creatinine 1.1 mg/dL mg/dL (0.7-1.3) Estimated GFR > 60 Glucose 132 mg/dL H mg/dL (70-100) Calcium 9.9 mg/dL mg/dL (8.5-10.4) Troponin I < 0.012 ng/mL ng/mL (0.000-0.034) Medications Given: Discontinued Medications Sodium Chloride (Ns) 1,000 mls @ 0 mls/hr IV EDNOW ONE; Wide Open PRN Reason: Protocol Stop: 06/14/17 15:05 Last Admin: 06/14/17 15:26 Dose: 1,000 mls Departure - Departure Disposition: Home, Routine, Self-Care Clinical Impression: Near syncope Condition: Good Instructions: Near Syncope (ED) Additional Instructions: Easy activity. Regular eating and drinking of meals in water. Continue regular medication. Return for chest discomfort, trouble breathing, another near passing out episode. Follow up with Dr. Denis tomorrow for any continuing symptoms Referrals: Patient,NotPresent [Unknown] - As per Instructions Kam Denis MD [Primary Care Provider] - 1 day, if not improved
[2017-06-14] MEDS ORDERED: NS 1,000 ML IV ONE (15:04)
[2017-06-14 15:09] LABS: PLATELET COUNT 239 10^3/uL (150-400)
[2017-06-14 15:26] VITALS: BP 153/86; PULSE 65; RESP 18; O2SAT 97
[2017-06-14 15:43] VITALS: TEMP 98.6
== END 2017-06-14 15:43 | disposition home or self-care (01) ==
LOC: EDUNIT#
PROC: 3E0337Z Introduction of Electrolytic and Water Balance Substance into Peripheral Vein, Percutaneous Approach (ICD-10-PCS; principal; 2017-06-14)
DX: R55 Syncope and collapse (principal); E86.9 Volume depletion, unspecified; Z79.82 Long term (current) use of aspirin; Z87.891 Personal history of nicotine dependence

== ENCOUNTER 2018-01-19 17:52 | Emergency (ER) | payer OTHER ==
[2018-01-19 18:34] LABS: PLATELET COUNT 182 10^3/uL (150-400)
--- NOTE | 2018-01-19 18:37 | EDPHY ---
H & P Stated Complaint: CP ONLY WITH DEEP BREATH COUGH AND FEVER/HX PNA Time Seen by Provider: 01/19/18 18:04 HPI/ROS: Chief Complaint: Chest pain with deep breathing HPI: 87-year-old male with history of Parkinson's disease, presenting with pain with deep inspiration which is been going on all day today. Mild dry nonproductive cough. No fevers or chills. No shortness of breath. He has had some increasing fatigue per his . He had pneumonia about 6 months ago with somewhat similar symptoms. No pain at rest. It is not exertional. Is no palpitations. No lightheadedness or fainting. No falls or injuries. ROS: 10 systems were reviewed and were negative except those elements noted in the HPI. PMH: Parkinson's disease, pneumonia Social History: No smoking, no alcohol, no recreational drug use Family History: non-contributory Physical Exam: Gen: Awake, Alert, No Distress HEENT: Nose: no rhinorrhea Eyes: PERRLA, EOMI Mouth: Moist mucosa Neck: Supple, no JVD Chest: nontender, lungs clear to auscultation Heart: S1, S2 normal, no murmur Abd: Soft, non-tender, no guarding Back: no CVA tenderness, no midline tenderness Ext: no edema, non-tender Skin: no rash Neuro: CN II-XII intact, Sensation grossly intact, Strength 5/5 in bilateral upper and lower extremities - Personal History Current Tetanus Diphtheria and Acellular Pertussis (TDAP): Yes Tetanus Vaccine Date: with in 5 yrs - Medical/Surgical History Hx Asthma: No Hx Chronic Respiratory Disease: No Hx Diabetes: No Hx Cardiac Disease: No Hx Renal Disease: No Hx Cirrhosis: No Hx Alcoholism: No Hx HIV/AIDS: No Hx Splenectomy or Spleen Trauma: No Other PMH: PMH- psoriatic arthritis, gerd/ulcer, neuropathy, ortho, c-2 fracture , osteoperosis, BPH, keratocunjuctivitis, dysplipedima, PAC's, basal cell CA, migraines, hearing loss, VINOD. PSH- vasectomy, R wrist fusion, cataract surgery , glaucoma repair - Social History Smoking Status: Former smoker Constitutional: Initial Vital Signs Temperature (C) 37.7 C 01/19/18 17:55 Heart Rate 66 01/19/18 17:55 Respiratory Rate 18 01/19/18 17:55 Blood Pressure 134/80 H 01/19/18 17:55 O2 Sat (%) 96 01/19/18 17:55 O2 Delivery Mode Room Air Allergies/Adverse Reactions: amoxicillin [Amoxicillin] Allergy (Verified 01/19/18 17:54) clopidogrel bisulfate [From Plavix] Allergy (Verified 01/19/18 17:54) meclofenamate sodium [From Meclomen] Allergy (Verified 01/19/18 17:54) Hives mirabegron [From Myrbetriq] Allergy (Verified 01/19/18 17:54) Quinolones Allergy (Verified 01/19/18 17:54) Home Medications: Medication Instructions Recorded Aspirin [Aspirin 81mg (*)] 81 mg PO DAILY 09/13/13 Finasteride [Proscar 5 MG (*)] 5 mg PO DAILY@18 09/13/13 Multivitamins [Multivitamin (*)] 1 each PO Q2D@1800 09/13/13 Naproxen [Naprosyn] 500 mg PO BIDMEAL 09/13/13 Omeprazole [Prilosec 20 mg] 20 mg PO BIDAC 09/13/13 DORZOLAMIDE HCL 1 drop EACHEYE TID 08/10/16 DULoxetine [Cymbalta] 20 mg PO DAILY 08/10/16 Tafluprost/Pf [Zioptan 0.0015% Eye 1 drop EACHEYE HS 08/10/16 Drops] Tolterodine Tartrate [Tolterodine 4 mg PO DAILY 08/10/16 Tartrate ER] Vits A,C,E/Lutein/Minerals 1 each PO Q2D@1800 08/10/16 [Ocuvite with Lutein Tablet] Azithromycin [Zithromax] 250 mg PO DAILY #4 tab 01/19/18 Medical Decision Making - Diagnostics EKG Interpretation: ECG time 6:09 p.m. Sinus rhythm with a rate of 90, nonspecific interventricular conduction delay, occasional PVCs, no acute ST or T-wave changes. Imaging Results: Imaging Impressions Chest X-Ray 01/19/18 18:20 Impression: Mild underlying bronchitis and possible early pneumonia left lower lobe. ED Course/Re-evaluation: Chest x-ray shows possible early infiltrate in the left lower lobe. Patient has a mildly elevated age adjusted D-dimer at 0.87. I have explained the risks and the possibility of a PE. He is refusing CT scan of the chest at this time. He has had an elevated D-dimer before. He is not 1 of the exposed to the radiation. I explained to him that the likelihood of any adverse effects from radiation would be unlikely given his age. He understands this and still would like to refuse. 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 Will treat him with oral antibiotics as an outpatient. His oxygen saturations are excellent. Heart rate is normal. Blood pressure is appropriate. He is at his baseline otherwise. He is in no distress. He has no oxygen requirements. He will be discharged with follow up with his primary care physician. I will start him on azithromycin given his history of mycoplasma pneumonia in the past. - Data Points Laboratory Results: Laboratory Results 01/19/18 18:17 01/19/18 18:17 01/19/18 01/19/18 01/19/18 18:25 18:17 18:17 WBC RBC Hgb Hct MCV MCH MCHC RDW Plt Count MPV Neut % (Auto) Lymph % (Auto) [place] % (Auto) Eos % (Auto) Baso % (Auto) Nucleat RBC Rel Count Absolute Neuts (auto) Absolute Lymphs (auto) Absolute Monos (auto) Absolute Eos (auto) Absolute Basos (auto) Absolute Nucleated RBC Immature Gran % Immature Gran # D-Dimer 0.87 ug/mLFEU H ug/mLFEU (0.00-0.50) Sodium 136 mEq/L mEq/L (135-145) Potassium 4.7 mEq/L mEq/L (3.3-5.0) Chloride 101 mEq/L mEq/L (97-110) Carbon Dioxide 23 mEq/l mEq/l (22-31) Anion Gap 12 mEq/L mEq/L (8-16) BUN 21 mg/dL mg/dL (7-23) Creatinine 0.9 mg/dL mg/dL (0.7-1.3) Estimated GFR > 60 Glucose 129 mg/dL H mg/dL (70-100) Calcium 9.2 mg/dL mg/dL (8.5-10.4) POC Troponin I 0.01 ng/mL ng/mL (0.00-0.08) 01/19/18 18:17 WBC 12.05 10^3/uL H 10^3/uL (3.80-9.50) RBC 5.06 10^6/uL 10^6/uL (4.40-6.38) Hgb 13.9 g/dL g/dL (13.7-17.5) Hct 41.0 % % (40.0-51.0) MCV 81.0 fL L fL (81.5-99.8) MCH 27.5 pg L pg (27.9-34.1) MCHC 33.9 g/dL g/dL (32.4-36.7) RDW 15.9 % H % (11.5-15.2) Plt Count 182 10^3/uL 10^3/uL (150-400) MPV 11.0 fL fL (8.7-11.7) Neut % (Auto) 85.8 % H % (39.3-74.2) Lymph % (Auto) 6.1 % L % (15.0-45.0) [place] % (Auto) 5.3 % % (4.5-13.0) Eos % (Auto) 2.2 % % (0.6-7.6) Baso % (Auto) 0.2 % L % (0.3-1.7) Nucleat RBC Rel Count 0.0 % % (0.0-0.2) Absolute Neuts (auto) 10.32 10^3/uL H 10^3/uL (1.70-6.50) Absolute Lymphs (auto) 0.74 10^3/uL L 10^3/uL (1.00-3.00) Absolute Monos (auto) 0.64 10^3/uL 10^3/uL (0.30-0.80) Absolute Eos (auto) 0.27 10^3/uL 10^3/uL (0.03-0.40) Absolute Basos (auto) 0.03 10^3/uL 10^3/uL (0.02-0.10) Absolute Nucleated RBC 0.00 10^3/uL 10^3/uL (0-0.01) Immature Gran % 0.4 % % (0.0-1.1) Immature Gran # 0.05 10^3/uL 10^3/uL (0.00-0.10) D-Dimer Sodium Potassium Chloride Carbon Dioxide Anion Gap BUN Creatinine Estimated GFR Glucose Calcium POC Troponin I Point of Care Test Results: Chemistry 01/19/18 18:25 POC Troponin I 0.01 ng/mL ng/mL (0.00-0.08) Departure - Departure Disposition: Home, Routine, Self-Care Clinical Impression: Pneumonia Condition: Good Instructions: Pneumonia (ED) Additional Instructions: Please take her full course of antibiotics. Return to the emergency department for increasing chest pain, shortness of breath, fainting, worsening cough, or any other concerns. Follow up with primary care physician in 3-4 days for further evaluation. Referrals: Kam Denis MD [Primary Care Provider] - As per Instructions Prescriptions: Azithromycin [Zithromax] 250 mg PO DAILY #4 tab
--- NOTE | 2018-01-19 18:38 | CPEKG ---
Test Reason : OPEN Blood Pressure : / mmHG Vent. Rate : 090 BPM Atrial Rate : 089 BPM P-R Int : 166 ms QRS Dur : 116 ms QT Int : 359 ms P-R-T Axes : 060 -32 090 degrees QTc Int : 440 ms Sinus rhythm Multiple ventricular premature complexes Nonspecific intraventricular conduction delay Confirmed by Quirino Yanez ([id number]) on 01/19/2018 6:38:05 PM Referred By: Confirmed By:Quirino Yanez
[2018-01-19] MEDS ORDERED: IOPAMIDOL (ISOVUE 370) 100 ML BTL IV ONE (18:57)
[2018-01-19] MEDS ORDERED: AZITHROMYCIN 250 MG TAB PO ONE (19:35)
[2018-01-19 20:25] VITALS: BP 110/64
== END 2018-01-19 20:24 | disposition home or self-care (01) ==
DX: J18.9 Pneumonia, unspecified organism (principal); G20 Parkinson's disease; Z87.891 Personal history of nicotine dependence
CPT/HCPCS: 84484-PO; Q9967

== ENCOUNTER → 2018-03-26 | Outpatient (CLI) | payer OTHER | LOC: FIMAGING 13:55 | PROVIDERS: ATTEND Nurse Practitioner Adult Health | DX: J40 Bronchitis, not specified as acute or chronic (principal); J98.11 Atelectasis; J84.10 Pulmonary fibrosis, unspecified ==

== ENCOUNTER 2018-05-13 12:42 | Emergency (ER) | payer OTHER ==
[2018-05-13] MEDS ORDERED: ONDANSETRON 4 MG/2 ML VIAL IVP ONE (12:58)
[2018-05-13] MEDS ORDERED: NS 500 ML IV ONE (13:13)
--- NOTE | 2018-05-13 13:13 | EDPHY ---
H & P Stated Complaint: RUQ pn and constipation since this AM. Time Seen by Provider: 05/13/18 12:57 HPI/ROS: CHIEF COMPLAINT: Lower abdominal pain HISTORY OF PRESENT ILLNESS: 87-year-old male presents with lower abdominal pain. Onset of urge to defecate this morning, followed by waxing and waning lower abdominal pain. Associated with nausea and lack of appetite. Unable to have a bowel movement this morning, but the urge to defecate has resolved. Had a normal bowel movement yesterday. No fever. No prior similar symptoms. No prior abdominal surgery. REVIEW OF SYSTEMS: complete 10 point ROS reviewed and is negative except for the noted elements in the HPI - Personal History Current Tetanus/Diphtheria Vaccine: Yes Tetanus Vaccine Date: with in 5 yrs - Medical/Surgical History Hx Asthma: No Hx Chronic Respiratory Disease: No Hx Diabetes: No Hx Cardiac Disease: No Hx Renal Disease: No Hx Cirrhosis: No Hx Alcoholism: No Hx HIV/AIDS: No Hx Splenectomy or Spleen Trauma: No Other PMH: PMH- psoriatic arthritis, gerd/ulcer, neuropathy, ortho, c-2 fracture , osteoperosis, BPH, keratocunjuctivitis, dysplipedima, PAC's, basal cell CA, migraines, hearing loss, VINOD. PSH- vasectomy, R wrist fusion, cataract surgery , glaucoma repair - Social History Smoking Status: Former smoker Alcohol Use: Sober Drug Use: None Additional Social History: - Physical Exam Exam: General Appearance: Alert, pleasant Eyes: Pupils equal and round, no conjunctival pallor or injection ENT, Mouth: Mucous membranes moist Neck: Normal inspection Respiratory: Lungs are clear to auscultation Cardiovascular: Regular rate and rhythm Gastrointestinal: Abdomen is soft, left lower quadrant tenderness, no peritoneal signs Neurological: A&O, nonfocal exam Skin: Warm and dry, no rash Extremities: Nontender, no pedal edema Psychiatric: Mood and affect normal Constitutional: Initial Vital Signs Temperature (C) 36.4 C 05/13/18 12:49 Heart Rate 59 L 05/13/18 12:49 Respiratory Rate 16 05/13/18 12:49 Blood Pressure 131/65 H 05/13/18 12:49 O2 Sat (%) 95 05/13/18 12:49 O2 Delivery Mode Room Air Allergies/Adverse Reactions: amoxicillin [Amoxicillin] Allergy (Verified 05/13/18 12:48) clopidogrel bisulfate [From Plavix] Allergy (Verified 05/13/18 12:48) meclofenamate sodium [From Meclomen] Allergy (Verified 05/13/18 12:48) Hives mirabegron [From Myrbetriq] Allergy (Verified 05/13/18 12:48) Quinolones Allergy (Verified 05/13/18 12:48) Home Medications: Medication Instructions Recorded Aspirin [Aspirin 81mg (*)] 81 mg PO DAILY 09/13/13 Finasteride [Proscar 5 MG (*)] 5 mg PO DAILY@18 09/13/13 Multivitamins [Multivitamin (*)] 1 each PO Q2D@1800 09/13/13 Naproxen [Naprosyn] 500 mg PO BIDMEAL 09/13/13 Omeprazole [Prilosec 20 mg] 20 mg PO BIDAC 09/13/13 DORZOLAMIDE HCL 1 drop EACHEYE TID 08/10/16 DULoxetine [Cymbalta] 20 mg PO DAILY 08/10/16 Tafluprost/Pf [Zioptan 0.0015% Eye 1 drop EACHEYE HS 08/10/16 Drops] Tolterodine Tartrate [Tolterodine 4 mg PO DAILY 08/10/16 Tartrate ER] Vits A,C,E/Lutein/Minerals 1 each PO Q2D@1800 08/10/16 [Ocuvite with Lutein Tablet] Azithromycin [Zithromax] 250 mg PO DAILY #4 tab 01/19/18 Medical Decision Making - Diagnostics Imaging Results: Imaging Impressions Abdomen CT 05/13/18 13:14 Impression: 1. Constipation and fecal impaction. 2. No CT evidence of appendicitis, abscess, or bowel obstruction. 3. Distended bladder, measuring up to 14.4 x 10.7 x 7.2 cm, with enlarged prostate. 4. Small hiatal hernia. 5. Atherosclerotic aorta, without aneurysm. Findings and recommendations discussed with Emergency Department physician, Tawnya Lama M.D., at 1400 hours, on May 13, 2018. Final report concurs with initial preliminary interpretation. Imaging: Discussed imaging studies w/ call center agent Radiologist ED Course/Re-evaluation: CT scan results discussed with the patient and his . Fecal disimpaction performed by me. Soapsuds enema was given after which the pt had a very large BM and was able to urinate. Abdominal pain has resolved. Bladder scan after urination: 615 ml. Jacobson catheter discussed with the patient and his . The patient declines Jacobson catheter. Abdomen is soft and nontender. Patient able to urinate after the initial bladder scan. Postvoid residual is 400. Will follow up with Urology and with his PCP. Understands to return for inability to urinate, increasing abdominal discomfort or any concerns. Differential Diagnosis: Differential diagnosis includes though it is not limited to appendicitis, cholecystitis, diverticulitis, pyelonephritis, bowel perforation, small bowel obstruction. - Data Points Laboratory Results: Laboratory Results 05/13/18 13:00 05/13/18 13:00 05/13/18 05/13/18 05/13/18 15:11 13:14 13:00 WBC RBC Hgb POC Hgb 15.0 gm/dL gm/dL (13.7-17.5) Hct POC Hct 44 % % (40-51) MCV MCH MCHC RDW Plt Count MPV Neut % (Auto) Lymph % (Auto) [place] % (Auto) Eos % (Auto) Baso % (Auto) Nucleat RBC Rel Count Absolute Neuts (auto) Absolute Lymphs (auto) Absolute Monos (auto) Absolute Eos (auto) Absolute Basos (auto) Absolute Nucleated RBC Immature Gran % Immature Gran # POC Sodium 137 mEq/L mEq/L (135-145) Sodium 133 mEq/L L mEq/L (135-145) POC Potassium 4.1 mEq/L mEq/L (3.3-5.0) Potassium 4.3 mEq/L mEq/L (3.5-5.2) POC Chloride 102 mEq/L mEq/L (97-110) Chloride 102 mEq/L mEq/L (97-110) Carbon Dioxide 22 mEq/l mEq/l (22-31) Anion Gap 9 mEq/L mEq/L (6-14) POC BUN 21 mg/dL mg/dL (7-23) BUN 21 mg/dL mg/dL (7-23) Creatinine 0.9 mg/dL mg/dL (0.7-1.3) POC Creatinine 0.9 mg/dL mg/dL (0.7-1.3) Estimated GFR > 60 Glucose 136 mg/dL H mg/dL (70-100) POC Glucose 140 mg/dL H mg/dL (70-100) Calcium 9.3 mg/dL mg/dL (8.5-10.4) Total Bilirubin 0.5 mg/dL mg/dL (0.1-1.4) Conjugated Bilirubin 0.3 mg/dL mg/dL (0.0-0.5) Unconjugated Bilirubin 0.2 mg/dL mg/dL (0.0-1.1) AST 21 IU/L IU/L (17-59) ALT 24 IU/L IU/L (21-72) Alkaline Phosphatase 184 IU/L H IU/L (38-126) Total Protein 7.1 g/dL g/dL (6.3-8.2) Albumin 3.8 g/dL g/dL (3.5-5.0) Lipase 101 IU/L IU/L (23-300) Urine Color YELLOW Urine Appearance MODERATELY TURBID Urine pH 6.0 (5.0-7.5) Ur Specific [place] 1.032 H (1.002-1.030) Urine Protein NEGATIVE (NEGATIVE) Urine Ketones TRACE H (NEGATIVE) Urine Blood NEGATIVE (NEGATIVE) Urine Nitrate NEGATIVE (NEGATIVE) Urine Bilirubin NEGATIVE (NEGATIVE) Urine Urobilinogen NEGATIVE EU EU (0.2-1.0) Ur Leukocyte Esterase NEGATIVE (NEGATIVE) Urine Glucose NEGATIVE (NEGATIVE) 05/13/18 13:00 WBC 10.88 10^3/uL H 10^3/uL (3.80-9.50) RBC 5.26 10^6/uL 10^6/uL (4.40-6.38) Hgb 14.1 g/dL g/dL (13.7-17.5) POC Hgb Hct 43.6 % % (40.0-51.0) POC Hct MCV 82.9 fL fL (81.5-99.8) MCH 26.8 pg L pg (27.9-34.1) MCHC 32.3 g/dL L g/dL (32.4-36.7) RDW 15.6 % H % (11.5-15.2) Plt Count 376 10^3/uL 10^3/uL (150-400) MPV 11.1 fL fL (8.7-11.7) Neut % (Auto) 79.1 % H % (39.3-74.2) Lymph % (Auto) 13.3 % L % (15.0-45.0) [place] % (Auto) 5.0 % % (4.5-13.0) Eos % (Auto) 1.7 % % (0.6-7.6) Baso % (Auto) 0.5 % % (0.3-1.7) Nucleat RBC Rel Count 0.0 % % (0.0-0.2) Absolute Neuts (auto) 8.61 10^3/uL H 10^3/uL (1.70-6.50) Absolute Lymphs (auto) 1.45 10^3/uL 10^3/uL (1.00-3.00) Absolute Monos (auto) 0.54 10^3/uL 10^3/uL (0.30-0.80) Absolute Eos (auto) 0.19 10^3/uL 10^3/uL (0.03-0.40) Absolute Basos (auto) 0.05 10^3/uL 10^3/uL (0.02-0.10) Absolute Nucleated RBC 0.00 10^3/uL 10^3/uL (0-0.01) Immature Gran % 0.4 % % (0.0-1.1) Immature Gran # 0.04 10^3/uL 10^3/uL (0.00-0.10) POC Sodium Sodium POC Potassium Potassium POC Chloride Chloride Carbon Dioxide Anion Gap POC BUN BUN Creatinine POC Creatinine Estimated GFR Glucose POC Glucose Calcium Total Bilirubin Conjugated Bilirubin Unconjugated Bilirubin AST ALT Alkaline Phosphatase Total Protein Albumin Lipase Urine Color Urine Appearance Urine pH Ur Specific [place] Urine Protein Urine Ketones Urine Blood Urine Nitrate Urine Bilirubin Urine Urobilinogen Ur Leukocyte Esterase Urine Glucose Medications Given: Discontinued Medications Sodium Chloride (Ns) 500 mls @ 0 mls/hr IV EDNOW ONE; Wide Open PRN Reason: Protocol Stop: 05/13/18 13:14 Last Admin: 05/13/18 13:15 Dose: 500 mls Ondansetron HCl (Zofran) 4 mg IVP EDNOW ONE Stop: 05/13/18 12:59 Last Admin: 05/13/18 13:15 Dose: 4 mg Point of Care Test Results: Chemistry 05/13/18 13:14 POC Sodium 137 mEq/L mEq/L (135-145) POC Potassium 4.1 mEq/L mEq/L (3.3-5.0) POC Chloride 102 mEq/L mEq/L (97-110) POC BUN 21 mg/dL mg/dL (7-23) POC Creatinine 0.9 mg/dL mg/dL (0.7-1.3) POC Glucose 140 mg/dL H mg/dL (70-100) ISTAT H&H 05/13/18 13:14 POC Hgb 15.0 gm/dL gm/dL (13.7-17.5) POC Hct 44 % % (40-51) Departure - Departure Disposition: Home, Routine, Self-Care Clinical Impression: Fecal impaction, Urinary retention Condition: Good Instructions: Constipation (ED), Urinary Retention in Men (ED), Enlarged Prostate (BPH) (ED), High Fiber Diet (ED), Fecal Impaction (ED) Additional Instructions: Return for inability to urinate, increasing pain, any concerns. Follow-up with your physician in 2 days. Referrals: Kam Denis MD [Primary Care Provider] - 2-3 days without fail
[2018-05-13 13:26] LABS: PLATELET COUNT 376 10^3/uL (150-400)
[2018-05-13] MEDS ORDERED: IOPAMIDOL (ISOVUE-300) 100 ML BTL ONE (13:31)
[2018-05-13] MEDS ORDERED: LIDOCAINE 2% JELLY 20 ML (UROJECT) ONE (15:48)
[2018-05-13 16:09] VITALS: BP 155/95
== END 2018-05-13 16:07 | disposition home or self-care (01) ==
PROC: 4A0D7LZ Measurement of Urinary Volume, Via Natural or Artificial Opening (ICD-10-PCS; principal; 2018-05-13)
DX: K56.41 Fecal impaction (principal); R33.9 Retention of urine, unspecified; E86.9 Volume depletion, unspecified; G62.9 Polyneuropathy, unspecified; E78.5 Hyperlipidemia, unspecified; K21.9 Gastro-esophageal reflux disease without esophagitis; M81.0 Age-related osteoporosis without current pathological fracture; Z87.891 Personal history of nicotine dependence
CPT/HCPCS: 51798; 74177; 96374; 99285; J2405; Q9967; 82435-PO; 82565-PO; 82947-PO; 84132-PO; 84295-PO; 84520-PO; 85014-PO

== ENCOUNTER → 2018-06-03 | Outpatient (CLI) | payer OTHER | LOC: FIMAGING 14:52 | PROVIDERS: ATTEND Internal Medicine | DX: J90 Pleural effusion, not elsewhere classified (principal); I51.7 Cardiomegaly ==

== ENCOUNTER 2018-07-15 13:18 | Emergency (ER) | payer OTHER ==
--- NOTE | 2018-07-15 15:16 | EDPHY ---
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 He is complaining of hematuria and suprapubic pain. His states that this is similar to when he had a urinary tract infection in April that resolved with Keflex. He has chronic incontinence that she states is due to BPH. He wears depends and has constant leaking. She noticed today that it was red tinged. He has not had a fever. No back pain. No abdominal pain. He has never had any urologic procedures. He is currently on finasteride followed by Dr. Denis. He has been told by the [facility] that he has an aging bladder. His called several urology clinic today and could not get an appointment today but did make an appointment for with Dr. Cedeño. Severity: Moderate Modifying factors: None REVIEW OF SYSTEMS: Constitutional: denies: chills, fever, recent illness, recent injury EENTM: denies: blurred vision, double vision, nose congestion Respiratory: denies: cough, shortness of breath Cardiac: denies: chest pain, irregular heart rate, lightheadedness, palpitations Gastrointestinal/Abdominal: denies: abdominal pain, diarrhea, nausea, vomiting, blood streaked stools Genitourinary: See HPI Musculoskeletal: denies: joint pain, muscle pain Skin: denies: lesions, rash, jaundice, bruising Neurological: denies: headache, numbness, paresthesia, tingling, dizziness, weakness Hematologic/Lymphatic: denies: blood clots, easy bleeding, easy bruising Immunologic/allergic: denies: HIV/AIDS, transplant 10 systems reviewed and negative except as noted EXAM: GENERAL: Well-appearing, well-nourished and in no acute distress. HEAD: Atraumatic, normocephalic. EYES: Pupils equal round and reactive to light, extraocular movements intact, sclera anicteric, conjunctiva are normal. ENT: TMs normal, nares patent, oropharynx clear without exudates. Moist mucous membranes. NECK: Normal range of motion, supple without lymphadenopathy or JVD. LUNGS: Breath sounds clear to auscultation bilaterally and equal. No wheezes rales or rhonchi. HEART: Regular rate and rhythm without murmurs, rubs or gallops. ABDOMEN: Soft, nontender, normoactive bowel sounds. No guarding, no rebound. No masses appreciated. : Watery bloody urine leaking from the urethra, no urethral irritation or erythema or swelling. No significant suprapubic tenderness or fullness. BACK: No CVA tenderness, no spinal tenderness, step-offs or deformities EXTREMITIES: Normal range of motion, no pitting or edema. No clubbing or cyanosis. NEUROLOGICAL: Cranial nerves II through XII grossly intact. Normal speech, normal gait. 5/5 strength, normal movement in all extremities, normal sensation , normal reflexes PSYCH: Normal mood, normal affect. SKIN: Warm, dry, normal turgor, no visible rashes or lesions. Source: Patient, Family Exam Limitations: No limitations - Personal History Current Tetanus Diphtheria and Acellular Pertussis (TDAP): Yes Tetanus Vaccine Date: with in 5 yrs - Medical/Surgical History Hx Asthma: No Hx Chronic Respiratory Disease: No Hx Diabetes: No Hx Cardiac Disease: No Hx Renal Disease: No Hx Cirrhosis: No Hx Alcoholism: No Hx HIV/AIDS: No Hx Splenectomy or Spleen Trauma: No Other PMH: PMH- psoriatic arthritis, gerd/ulcer, neuropathy, ortho, c-2 fracture , osteoperosis, BPH, keratocunjuctivitis, dysplipedima, PAC's, basal cell CA, migraines, hearing loss, VINOD. PSH- vasectomy, R wrist fusion, cataract surgery , glaucoma repair - Family History Significant Family History: No pertinent family hx - Social History Smoking Status: Former smoker Alcohol Use: None Constitutional: Initial Vital Signs Temperature (C) 37 C 07/15/18 13:55 Heart Rate 84 07/15/18 13:55 Respiratory Rate 18 07/15/18 13:55 Blood Pressure 117/87 H 07/15/18 13:55 O2 Sat (%) 95 07/15/18 13:55 O2 Delivery Mode Room Air Allergies/Adverse Reactions: amoxicillin [Amoxicillin] Allergy (Verified 07/15/18 13:54) clopidogrel bisulfate [From Plavix] Allergy (Verified 07/15/18 13:54) meclofenamate sodium [From Meclomen] Allergy (Verified 07/15/18 13:54) Hives mirabegron [From Myrbetriq] Allergy (Verified 07/15/18 13:54) Quinolones Allergy (Verified 07/15/18 13:54) Home Medications: Medication Instructions Recorded Aspirin [Aspirin 81mg (*)] 81 mg PO DAILY 09/13/13 Finasteride [Proscar 5 MG (*)] 5 mg PO DAILY@18 09/13/13 Multivitamins [Multivitamin (*)] 1 each PO Q2D@1800 09/13/13 Naproxen [Naprosyn] 500 mg PO BIDMEAL 09/13/13 Omeprazole [Prilosec 20 mg] 20 mg PO BIDAC 09/13/13 DORZOLAMIDE HCL 1 drop EACHEYE TID 08/10/16 DULoxetine [Cymbalta] 20 mg PO DAILY 08/10/16 Tafluprost/Pf [Zioptan 0.0015% Eye 1 drop EACHEYE HS 08/10/16 Drops] Tolterodine Tartrate [Tolterodine 4 mg PO DAILY 08/10/16 Tartrate ER] Vits A,C,E/Lutein/Minerals 1 each PO Q2D@1800 08/10/16 [Ocuvite with Lutein Tablet] Azithromycin [Zithromax] 250 mg PO DAILY #4 tab 01/19/18 Cephalexin [Keflex] 500 mg PO TID #30 cap 07/15/18 Phenazopyridine HCl [Pyridium] 200 mg PO TID #6 tab 07/15/18 Medical Decision Making - Diagnostics Imaging Results: Imaging Impressions Abdomen CT 07/15/18 15:42 Impression: 1. Suspect acute cystitis. Doubtful for diffuse bladder wall neoplasm given rapid development of wall thickening since 3 months prior. 2. 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 3. No free fluid, abscess, or evidence of pyelonephritis. 4. Constipation. No acute bowel process. Findings discussed with Emergency Department physician, Yosvany French on 2018, 17:21. Imaging: Discussed imaging studies w/ call taker Radiologist ED Course/Re-evaluation: I did offer a extended workup including CT scan and lab work to evaluate for kidney stones, aneurysms, renal function cetera. Patient and spouse both declined this. 3:40 p.m. we discussed the patient's urinalysis which only has very few white cells compared to the number of red cells. They are unable to perform a dip because it was too bloody. Will send for cultures. He only has 105 cc on the bladder scanner. I offered to expand the workup including blood work for renal function and CT scan to rule out aneurysms, stones etc. Will also began Rocephin for potential urinary tract infection in the setting of patient with chronic incontinence, suprapubic pain and hematuria. 5:[address] p.[address]. we discussed the CT results. Patient and family are reassured. Will continue antibiotics for likely cystitis. Will also treat with Pyridium and they have follow-up appointment schedule on morning with Urology. Discussed the possibility that this is bladder cancer as well. Discussed indications for returning. They feel comfortable with this plan. Differential Diagnosis: Partial list of the Differential diagnosis considered include but were not limited to; urinary tract infection, kidney stone, aneurysm, bladder cancer, BPH, urinary retention and although unlikely based on the history and physical exam, I also considered trauma, sepsis. I discussed these differential diagnoses and the plan with the patient as well as the usual and expected course. The patient understands that the diagnosis is provisional and that in medicine we are not always correct and that further workup is often warranted. Usual and customary warnings were given. All of the patient's questions were answered. The patient was instructed to return to the emergency department should the symptoms at all worsen or return, otherwise to followup with the physician as we discussed. - Data Points Laboratory Results: Laboratory Results 07/15/18 16:00 07/15/18 16:00 07/15/18 07/15/18 07/15/18 16:00 16:00 14:00 WBC 10.26 10^3/uL H 10^3/uL (3.80-9.50) RBC 5.18 10^6/uL 10^6/uL (4.40-6.38) Hgb 13.6 g/dL L g/dL (13.7-17.5) Hct 42.1 % % (40.0-51.0) MCV 81.3 fL L fL (81.5-99.8) MCH 26.3 pg L pg (27.9-34.1) MCHC 32.3 g/dL L g/dL (32.4-36.7) RDW 18.6 % H % (11.5-15.2) Plt Count 202 10^3/uL 10^3/uL (150-400) MPV 12.3 fL H fL (8.7-11.7) Neut % (Auto) 76.8 % H % (39.3-74.2) Lymph % (Auto) 12.7 % L % (15.0-45.0) [place] % (Auto) 5.8 % % (4.5-13.0) Eos % (Auto) 4.0 % % (0.6-7.6) Baso % (Auto) 0.5 % % (0.3-1.7) Nucleat RBC Rel Count 0.0 % % (0.0-0.2) Absolute Neuts (auto) 7.89 10^3/uL H 10^3/uL (1.70-6.50) Absolute Lymphs (auto) 1.30 10^3/uL 10^3/uL (1.00-3.00) Absolute Monos (auto) 0.59 10^3/uL 10^3/uL (0.30-0.80) Absolute Eos (auto) 0.41 10^3/uL H 10^3/uL (0.03-0.40) Absolute Basos (auto) 0.05 10^3/uL 10^3/uL (0.02-0.10) Absolute Nucleated RBC 0.00 10^3/uL 10^3/uL (0-0.01) Immature Gran % 0.2 % % (0.0-1.1) Immature Gran # 0.02 10^3/uL 10^3/uL (0.00-0.10) Sodium 136 mEq/L mEq/L (135-145) Potassium 4.6 mEq/L mEq/L (3.5-5.2) Chloride 104 mEq/L mEq/L (97-110) Carbon Dioxide 25 mEq/l mEq/l (22-31) Anion Gap 7 mEq/L mEq/L (6-14) BUN 26 mg/dL H mg/dL (7-23) Creatinine 1.1 mg/dL mg/dL (0.7-1.3) Estimated GFR > 60 Glucose 104 mg/dL H mg/dL (70-100) Calcium 9.2 mg/dL mg/dL (8.5-10.4) Total Bilirubin 0.5 mg/dL mg/dL (0.1-1.4) Conjugated Bilirubin 0.2 mg/dL mg/dL (0.0-0.5) Unconjugated Bilirubin 0.3 mg/dL mg/dL (0.0-1.1) AST 29 IU/L IU/L (17-59) ALT 29 IU/L IU/L (21-72) Alkaline Phosphatase 127 IU/L H IU/L (38-126) Total Protein 6.9 g/dL g/dL (6.3-8.2) Albumin 3.7 g/dL g/dL (3.5-5.0) Urine Color RED Urine Appearance MODERATELY TURBID Urine pH TNP Ur Specific [place] TNP Urine Protein TNP Urine Ketones TNP Urine Blood TNP Urine Nitrate TNP Urine Bilirubin TNP Urine Urobilinogen TNP Ur Leukocyte Esterase TNP Urine RBC 50-182 /hpf H /hpf (0-3) Urine WBC 3-5 /hpf H /hpf (0-3) Ur Epithelial Cells NONE SEEN /lpf /lpf (NONE-1+) Urine Bacteria TRACE /hpf H /hpf (NONE SEEN) Urine Mucus 2+ /lpf H /lpf (NONE-1+) Urine Glucose TNP Medications Given: Discontinued Medications Ceftriaxone Sodium/Dextrose (Rocephin 1 Gm (Premix)) 50 mls @ 100 mls/hr IV EDNOW ONE PRN Reason: Protocol Stop: 07/15/18 16:10 Last Admin: 07/15/18 16:11 Dose: 50 mls Phenazopyridine HCl (Pyridium) 200 mg PO EDNOW ONE Stop: 07/15/18 17:43 Last Admin: 07/15/18 17:46 Dose: 200 mg Departure - Departure Disposition: Home, Routine, Self-Care Clinical Impression: Cystitis Condition: Good Instructions: Urinary Tract Infection in Men (ED) Referrals: Kam Denis MD [Primary Care Provider] - As per Instructions [facility] [Provider Group] - 2-3 days without fail ( as planned) Prescriptions: Cephalexin [Keflex] 500 mg PO TID #30 cap Phenazopyridine HCl [Pyridium] 200 mg PO TID #6 tab
[2018-07-15] MEDS ORDERED: IOPAMIDOL (ISOVUE-300) 100 ML BTL ONE (15:46)
[2018-07-15 16:24] LABS: PLATELET COUNT 202 10^3/uL (150-400)
[2018-07-15] MEDS ORDERED: PHENAZOPYRIDINE HCL 200 MG TAB PO ONE (17:42)
[2018-07-15 18:09] VITALS: BP 120/81
== END 2018-07-15 18:09 | disposition home or self-care (01) ==
DX: N39.0 Urinary tract infection, site not specified (principal); R31.9 Hematuria, unspecified
CPT/HCPCS: 74177; 96365; 99285; J0696; Q9967